=== PATIENT | female | born 1935 | race Caucasian/White ===

== ENCOUNTER 2016-09-14 13:16 | Emergency (ER) | payer MEDICARE, OTHER ==
[2016-09-14 13:25] VITALS: BP 146/82
--- NOTE | 2016-09-14 13:49 | EDM.PDOC ---
ED HPI RENAL/ - General Chief Complaint: Genitourinary Problem Stated Complaint: BLADDER INFECTION Time Seen by Provider: 09/14/16 13:43 Source of Information: Reports: Patient History Limitations: Reports: No limitations - History of Present Illness INITIAL COMMENTS - FREE TEXT/NARRATIVE: 81-year-old female it is ED with complaints of sudden onset of dysuria urgency and frequency since awakening this morning. She reports that she is prone to urinary tract infections but hasn't had one for about 3-4 months. 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 Next appointment is in October. She has not seen any blood in her urine. At present she is voiding about every 15-20 minutes with a constant urge and need to void. Associated mild diffuse low back discomfort and suprapubic pressure discomfort. No fever or chills. Symptom Onset Date: 09/14/16 Symptom Onset Time: 07:30 Timing/Duration: Reports: Hour(s):, Getting worse, Sudden onset Location: Reports: suprapubic Quality: Reports: burning Severity: severe Improves with: Reports: other (Nothing seems to make it better or worse.) Context: Denies: sick contact, recent surgery, recent trauma, lifting, activity/ exercise, other Associated Symptoms: Reports: burning, dysuria, frequency, urgency, voiding small amounts. Denies: incontinence, constipation - Related Data Allergies/ADRs: Allergies Allergy/AdvReac Type Severity Reaction Status Date / Time No Known Allergies Allergy Verified 03/28/14 21:52 Home Meds: Home Meds atorvaSTATin [Lipitor] 10 mg PO DAILY 03/28/14 [History] Nitrofurantoin Cherry/Macrocryst [Macrobid] 100 mg PO BID #16 cap 09/14/16 [Rx] Phenazopyridine HCl [Pyridium] 100 mg PO Q6H #4 tablet 09/14/16 [Rx] Past Medical History Cardiovascular History: Reports: High cholesterol Genitourinary History: Reports: UTI, recurrent Oncologic (Cancer) History: Reports: Bladder (A cystoscopy carried out every 3 months. Is in October.) - Past Surgical History GI Surgical History: Reports: Appendectomy Social & Family History - Tobacco Use Smoking Status *Q: Never Smoker - Caffeine Use Caffeine Use: Reports: Coffee, Tea - Alcohol Use Days Per Week of Alcohol Use: 7 Number of Drinks Per Day: 1 Total Drinks Per Week: 7 - Recreational Drug Use Recreational Drug Use: No - Living Situation & Occupation Occupation: retired ED ROS GENERAL - Review of Systems Review Of Systems: See Below Constitutional: Denies: fever, chills, malaise, weakness, fatigue, weight loss HEENT: Reports: No symptoms Respiratory: Reports: No Symptoms Cardiovascular: Reports: No symptoms Endocrine: Reports: no symptoms GI/Abdominal: Reports: Abdominal pain (Suprapubic pressure discomfort.) : Reports: dysuria, frequency, pain, urgency. Denies: hematuria, urinary retention Musculoskeletal: Reports: back pain Skin: Reports: no symptoms (Diffuse low back pain below her flanks.) Neurological: Reports: No Symptoms Psychiatric: Reports: No symptoms ED EXAM, RENAL/ - Physical Exam Exam: See Below Exam Limited By: No limitations General Appearance: alert, WD/WN, mild distress Throat/Mouth: Normal inspection, Normal lips, Normal teeth, Normal oropharynx Head: atraumatic, normocephalic Neck: normal inspection, supple, non-tender, full range of motion. No: lymphadenopathy (L), lymphadenopathy (R) Respiratory/Chest: no respiratory distress, lungs clear, normal breath sounds, no accessory muscle use, respiratory distress (Final tachypnea due to anxiety.) Cardiovascular: normal peripheral pulses, regular rate, rhythm, no edema, no gallop, no murmur, no rub GI/Abdominal: other (Mild suprapubic pressure discomfort.) Back Exam: No: CVA tenderness (L), CVA tenderness (R) Neurological: alert, oriented, CN II-XII intact, normal cognition, normal gait Psychiatric: normal affect, normal mood Skin Exam: Warm, Dry, Intact, Normal color, No rash Course - Vital Signs Last Recorded V/S: Last Vital Signs Temp 36.6 C 09/14/16 13:24 Pulse 86 09/14/16 13:24 Resp 20 09/14/16 13:24 BP 146/82 H 09/14/16 13:24 Pulse Ox 97 09/14/16 13:24 - Orders/Labs/Meds Orders: Active Orders 24 hr Category Date Time Status CULTURE URINE [RM] Stat Lab 09/14/16 15:08 Uncollected Labs: Laboratory Tests 09/14/16 Range/Units 13:45 Urine Color Yellow (Yellow) Urine Appearance Clear (Clear) Urine pH 6.0 (5.0-8.0) Ur Specific [place] 1.015 (1.005-1.030) Urine Protein Negative (Negative) Urine Glucose (UA) Negative (Negative) Urine Ketones Negative (Negative) Urine Occult Blood 1+ H (Negative) Urine Nitrite Positive H (Negative) Urine Bilirubin Negative (Negative) Urine Urobilinogen 0.2 (0.2-1.0) Ur Leukocyte Esterase 1+ H (Negative) Urine RBC 0-5 (0-5) /hpf Urine WBC 5-10 H (0-5) /hpf Ur Epithelial Cells 5-10 H (0-5) /hpf Urine Bacteria Many H (FEW) /hpf Urine Mucus Few (FEW) /hpf - Radiology Interpretation Free Text/Narrative:: 81-year-old female presents the ED with acute onset of urgency dysuria and frequency since waking up this morning. She reports that she's kind of prone to urinary tract infections but hasn't had one for several months. She has a history of carcinoma of the bladder and is followed every 3 months by cystoscopy. Plan urinalysis to - Re-Assessments/Exams Free Text/Narrative Re-Assessment/Exam: 09/14/16 14:12 urinalysis shows positive nitrates and bitemporal cells 5-10 red cells per high-power field trace leukocyte esterase. Culture ordered. Patient placed on Macrobid 100 mg twice daily for 8 days. Also Pyridium 100 mg every 6 hours x4 tablets. Plenty of fluids. Expect marked improvement in 24 hours time. Departure - Departure Time of Disposition: 13:47 Disposition: Home, Self-Care 01 Condition: fair Clinical Impression: UTI, Urinary tract infectious disease Prescriptions: Nitrofurantoin Cherry/Macrocryst [Macrobid] 100 mg PO BID #16 cap Phenazopyridine HCl [Pyridium] 100 mg PO Q6H #4 tablet Instructions: Urinary Tract Infection, Adult, [id number] Referrals: Jas Fischer MD [Primary Care Provider] - Forms: ED Department Discharge Additional Instructions: Evaluation in the emergency room today in regards to development of acute lower urinary tract infection. This includes dysuria with burning with voiding as well as a sense of urgency to go and increased frequency of urination. Associated low back pain. Treatment is antibiotic Macrobid 100 mg twice daily for 8 days to clear up infection. Pyridium 100 mg every 6 hours as needed to relieve symptoms of burning and urgency and frequency. Expect marked improvement over the next 24 hours. Of course drink plenty of fluids try to flush as well. - My Orders Last 24 Hours: My Active Orders 09/14/16 15:08 CULTURE URINE [RM] Stat - Assessment/Plan Last 24 Hours: My Active Orders 09/14/16 15:08 CULTURE URINE [] Stat
== END 2016-09-14 14:10 | disposition home or self-care (01) ==
LOC: JD.ED 13:16
DX: N39.0 Urinary tract infection, site not specified (principal); E78.00 Pure hypercholesterolemia, unspecified; Z90.49 Acquired absence of other specified parts of digestive tract
CPT/HCPCS: 81001; 99283

== ENCOUNTER 2018-03-14 07:48 | Emergency (ER) | payer MEDICARE, OTHER ==
[2018-03-14] MEDS ORDERED: Sodium Chloride 0.9% 1,000 ML IV STA (08:10)
[2018-03-14] MEDS ORDERED: Sodium Chloride 0.9% 10 ML Syringe FLUSH PRN (08:10)
[2018-03-14] MEDS ORDERED: Ondansetron 4 MG/2 ML SDV IVPUSH ONE (08:10)
[2018-03-14] MEDS ORDERED: Acetaminophen 325 MG Tab PO ONE (08:12)
--- NOTE | 2018-03-14 08:29 | EDM.PDOC ---
ED HPI GENERAL MEDICAL PROBLEM - General Chief Complaint: Fever Stated Complaint: CHILLS/NAUSEA Time Seen by Provider: 03/14/18 08:01 Source of Information: Reports: Patient, Family History Limitations: Reports: No Limitations - History of Present Illness INITIAL COMMENTS - FREE TEXT/NARRATIVE: The patient presents with a fever, nausea and some dizziness. This all started this morning when she woke up. She went to bed feeling fine. She denies a cough but she did cough when I examined her. She has nausea but no vomiting. She has no chest pain or shortness of breath. She denies abdominal pain but her abdomen does not feel right. She did take some azo the past few days because she felt like a bladder infection was coming on. Those symptoms have gotten better. She has no history of heart disease, hypertension, hypercholesterolemia, asthma or COPD. She feels dizzy when she is up walking. Onset: Sudden Duration: Hour(s): Quality: Reports: Ache Severity: Moderate Improves with: Reports: None Worsens with: Reports: None Associated Symptoms: Reports: Cough, Fever/Chills, Nausea/Vomiting. Denies: Chest Pain, Headaches, Shortness of Breath Abdominal Pain Score (Numeric/FACES): 5 - Related Data Allergies Allergy/AdvReac Type Severity Reaction Status Date / Time No Known Allergies Allergy Verified 03/14/18 08:01 Home Meds: Home Meds atorvaSTATin [Lipitor] 10 mg PO DAILY 03/28/14 [History] Nitrofurantoin Monohyd/M-Cryst [Macrobid 100 mg Capsule] 100 mg PO BID #10 capsule 03/14/18 [Rx] Past Medical History HEENT History: Reports: Impaired Vision Other HEENT History: Wears eye glasses. 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 Musculoskeletal History: Reports: Back Pain, Chronic Oncologic (Cancer) History: Reports: Bladder - Past Surgical History GI Surgical History: Reports: Appendectomy Female Surgical History: Reports: Other (See Below) Other Female Surgeries/Procedures: Bladder Surgery Endocrine Surgical History: Reports: None Neurological Surgical History: Reports: None Dermatological Surgical History: Reports: None Social & Family History - Caffeine Use Caffeine Use: Reports: Soda - Living Situation & Occupation Occupation: Retired ED ROS GENERAL - Review of Systems Review Of Systems: See Below Constitutional: Reports: Fever, Chills HEENT: Reports: No Symptoms Respiratory: Reports: No Symptoms Cardiovascular: Reports: No Symptoms Endocrine: Reports: No Symptoms GI/Abdominal: Reports: Abdominal Pain (her abdomen does not feel right), Nausea. Denies: Vomiting : Reports: No Symptoms Musculoskeletal: Reports: No Symptoms ED EXAM, SEPSIS - Physical Exam Exam: See Below Exam Limited By: No Limitations General Appearance: Alert, No Apparent Distress Ears: Normal External Exam, Normal Canal, Normal TMs Nose: Normal Inspection Throat/Mouth: Normal Inspection Head: Atraumatic, Normocephalic Neck: Normal Inspection, Supple, Non-Tender Respiratory/Chest: No Respiratory Distress, Lungs Clear, Normal Breath Sounds Cardiovascular: Regular Rate, Rhythm, No Edema, No Murmur GI/Abdominal Exam: Soft, Non-Tender, No Organomegaly, No Mass Back: Normal Inspection Extremities: Normal Inspection Neurological: Alert, Oriented, No Motor/Sensory Deficits, Other (No nystagmus) Course - Vital Signs Last Recorded V/S: Last Vital Signs Temp 98.2 F 03/14/18 09:38 Pulse 102 H 03/14/18 09:38 Resp 16 03/14/18 09:38 BP 110/55 L 03/14/18 09:38 Pulse Ox 97 03/14/18 09:38 - Orders/Labs/Meds Orders: Active Orders 24 hr Category Date Time Status Oxygen Therapy Adult [Oxygen Therapy, ED] [RC] Care 03/14/18 08:33 Active ASDIRECTED Peripheral IV Care [RC] . DIRECTED Care 03/14/18 08:10 Active Chest 1V Frontal [CR] Stat Exams 03/14/18 08:10 Taken CULTURE BLOOD [BC] Stat Lab 03/14/18 08:25 Received CULTURE BLOOD [BC] Stat Lab 03/14/18 08:32 Received CULTURE URINE [RM] Stat Lab 03/14/18 08:50 Received Sodium Chloride 0.9% [Saline Flush] Med 03/14/18 08:10 Active 10 ml FLUSH ASDIRECTED PRN Blood Culture x2 Reflex Set [OM.PC] Stat Oth 03/14/18 08:10 Ordered ED Antiemetic Medication Reflex [OM.PC] Stat Oth 03/14/18 08:10 Ordered Peripheral IV Insertion Adult [OM.PC] Stat Oth 03/14/18 08:10 Ordered Medication Orders Sodium Chloride (Saline Flush) 10 ml FLUSH ASDIRECTED PRN PRN Reason: Keep Vein Open Last Admin: 03/14/18 08:20 Dose: 10 ml Labs: Laboratory Tests 03/14/18 03/14/18 03/14/18 Range/Units 08:25 08:25 08:25 WBC 10.90 H (3.98-10.04) K/mm3 RBC 4.12 (3.98-5.22) M/mm3 Hgb 12.2 (11.2-15.7) gm/L Hct 38.0 (34.1-44.9) % MCV 92.2 (79.4-94.8) fl MCH 29.6 (25.6-32.2) pg MCHC 32.1 L (32.2-35.5) g/dl RDW Std Deviation 47.7 H (36.4-46.3) fL Plt Count 369 (182-369) K/mm3 MPV 8.5 L (9.4-12.3) fl Neut % (Auto) 88.9 H (34.0-71.1) % Lymph % (Auto) 5.7 L (19.3-51.7) % [place] % (Auto) 4.6 L (4.7-12.5) % Eos % (Auto) 0.3 L (0.7-5.8) Baso % (Auto) 0.2 (0.1-1.2) % Neut # (Auto) 9.70 H (1.56-6.13) K/mm3 Lymph # (Auto) 0.62 L (1.18-3.74) K/mm3 [place] # (Auto) 0.50 H (0.24-0.36) K/mm3 Eos # (Auto) 0.03 L (0.04-0.36) K/mm3 Baso # (Auto) 0.02 (0.01-0.08) K/mm3 Manual Slide Review Abnormal smear Sodium 138 (136-145) mEq/L Potassium 3.6 (3.5-5.1) mEq/L Chloride 104 (98-107) mEq/L Carbon Dioxide 26 (21-32) mEq/L Anion Gap 11.6 (5-15) BUN 12 (7-18) mg/dL Creatinine 1.0 (0.55-1.02) mg/dL Est Cr Clr Drug Dosing 39.03 mL/min Estimated GFR (MDRD) 53 (>60) mL/min BUN/Creatinine Ratio 12.0 L (14-18) Glucose 133 H (83-115) mg/dL Lactic Acid 1.6 (0.4-2.0) mmol/L Calcium 9.0 (8.5-10.1) mg/dL Total Bilirubin 1.5 H (0.2-1.0) mg/dL AST 15 (15-37) U/L ALT 16 (14-59) U/L Alkaline Phosphatase 90 (46-116) U/L Total Protein 6.8 (6.4-8.2) g/dl Albumin 3.0 L (3.4-5.0) g/dl Globulin 3.8 gm/dL Albumin/Globulin Ratio 0.8 L (1-2) Urine Color (Yellow) Urine Appearance (Clear) Urine pH (5.0-8.0) Ur Specific [place] (1.005-1.030) Urine Protein (Negative) Urine Glucose (UA) (Negative) Urine Ketones (Negative) Urine Occult Blood (Negative) Urine Nitrite (Negative) Urine Bilirubin (Negative) Urine Urobilinogen (0.2-1.0) Ur Leukocyte Esterase (Negative) Urine RBC (0-5) /hpf Urine WBC (0-5) /hpf Ur Epithelial Cells (0-5) /hpf Urine Bacteria (FEW) /hpf Urine Mucus (FEW) /hpf 03/14/18 Range/Units 08:50 WBC (3.98-10.04) K/mm3 RBC (3.98-5.22) M/mm3 Hgb (11.2-15.7) gm/L Hct (34.1-44.9) % MCV (79.4-94.8) fl MCH (25.6-32.2) pg MCHC (32.2-35.5) g/dl RDW Std Deviation (36.4-46.3) fL Plt Count (182-369) K/mm3 MPV (9.4-12.3) fl Neut % (Auto) (34.0-71.1) % Lymph % (Auto) (19.3-51.7) % [place] % (Auto) (4.7-12.5) % Eos % (Auto) (0.7-5.8) Baso % (Auto) (0.1-1.2) % Neut # (Auto) (1.56-6.13) K/mm3 Lymph # (Auto) (1.18-3.74) K/mm3 [place] # (Auto) (0.24-0.36) K/mm3 Eos # (Auto) (0.04-0.36) K/mm3 Baso # (Auto) (0.01-0.08) K/mm3 Manual Slide Review Sodium (136-145) mEq/L Potassium (3.5-5.1) mEq/L Chloride (98-107) mEq/L Carbon Dioxide (21-32) mEq/L Anion Gap (5-15) BUN (7-18) mg/dL Creatinine (0.55-1.02) mg/dL Est Cr Clr Drug Dosing mL/min Estimated GFR (MDRD) (>60) mL/min BUN/Creatinine Ratio (14-18) Glucose (83-115) mg/dL Lactic Acid (0.4-2.0) mmol/L Calcium (8.5-10.1) mg/dL Total Bilirubin (0.2-1.0) mg/dL AST (15-37) U/L ALT (14-59) U/L Alkaline Phosphatase (46-116) U/L Total Protein (6.4-8.2) g/dl Albumin (3.4-5.0) g/dl Globulin gm/dL Albumin/Globulin Ratio (1-2) Urine Color Yellow (Yellow) Urine Appearance Turbid H (Clear) Urine pH 6.5 (5.0-8.0) Ur Specific [place] 1.025 (1.005-1.030) Urine Protein 3+ H (Negative) Urine Glucose (UA) Negative (Negative) Urine Ketones Trace H (Negative) Urine Occult Blood 2+ H (Negative) Urine Nitrite Positive H (Negative) Urine Bilirubin Negative (Negative) Urine Urobilinogen 0.2 (0.2-1.0) Ur Leukocyte Esterase 3+ H (Negative) Urine RBC 30-40 H (0-5) /hpf Urine WBC Too numerous to cnt H (0-5) /hpf Ur Epithelial Cells 5-10 H (0-5) /hpf Urine Bacteria Many H (FEW) /hpf Urine Mucus Few (FEW) /hpf Meds: Medications Generic Name Dose Route Start Last Admin Trade Name Akosua PRN Reason Stop Dose Admin Sodium Chloride 10 ml 03/14/18 08:10 03/14/18 08:20 Saline Flush FLUSH 10 ml ASDIRECTED PRN Administration Keep Vein Open Discontinued Medications Generic Name Dose Route Start Last Admin Trade Name Akosua PRN Reason Stop Dose Admin Acetaminophen 975 mg 03/14/18 08:12 03/14/18 08:19 Tylenol PO 03/14/18 08:13 975 mg NOW ONE Administration Sodium Chloride 1,000 mls @ 1,000 mls/hr 03/14/18 08:10 03/14/18 08:18 Normal Saline IV 03/14/18 09:09 1,000 mls/hr .BOLUS STA Administration Ceftriaxone Sodium 2 gm/ 100 mls @ 100 mls/hr 03/14/18 09:26 03/14/18 09:36 Sodium Chloride IV 03/14/18 10:25 100 mls/hr ONETIME ONE Administration Ondansetron HCl 4 mg 03/14/18 08:10 03/14/18 08:19 Zofran IVPUSH 03/14/18 08:11 4 mg ONETIME ONE Administration - Re-Assessments/Exams Free Text/Narrative Re-Assessment/Exam: 03/14/18 08:32 I ordered an IV NS 1L bolus, UA, labs, CXR, blood cultures, tylenol and zofran. My nurse had to put the patient on 2L by MT because her oxygen saturations went down to 85% while she was sitting here. 03/14/18 09:35 Her CXR looks good. Her WBC was slightly elevated at 10.9. Her glucose is elevated at 133. Her lactic acid was normal at 1.6. Her UA was positive for UTI. I have ordered a urine culture and rocephin 2 grams IV. 03/14/18 10:45 She feels better. I feel that I can discharge her home on some macrobid. I will send a prescription to her pharmacy. Departure - Departure Time of Disposition: 10:50 Disposition: Home, Self-Care 01 Condition: Good Clinical Impression: UTI, Urinary tract infectious disease, Nausea, Dizziness - Discharge Information *PRESCRIPTION DRUG MONITORING PROGRAM REVIEWED*: No *COPY OF PRESCRIPTION DRUG MONITORING REPORT IN PATIENT TASHA: No Prescriptions: Nitrofurantoin Monohyd/M-Cryst [Macrobid 100 mg Capsule] 100 mg PO BID #10 capsule Referrals: Jun Martell MD [Primary Care Provider] - Forms: ED Department Discharge Additional Instructions: Drink plenty of water. Take the macrobid 2 times per day for 5 days. Please return if you are worse. - My Orders Last 24 Hours: My Active Orders 03/14/18 08:10 Peripheral IV Care [RC] . DIRECTED Chest 1V Frontal [CR] Stat Sodium Chloride 0.9% [Saline Flush] 10 ml FLUSH ASDIRECTED PRN Blood Culture x2 Reflex Set [OM.PC] Stat ED Antiemetic Medication Reflex [OM.PC] Stat Peripheral IV Insertion Adult [OM.PC] Stat 03/14/18 08:25 CULTURE BLOOD [BC] Stat 03/14/18 08:32 CULTURE BLOOD [BC] Stat 03/14/18 08:33 Oxygen Therapy Adult [Oxygen Therapy, ED] [] ASDIRECTED 03/14/18 08:50 CULTURE URINE [RM] Stat - Assessment/Plan Last 24 Hours: My Active Orders 03/14/18 08:10 Peripheral IV Care [RC] . DIRECTED Chest 1V Frontal [CR] Stat Sodium Chloride 0.9% [Saline Flush] 10 ml FLUSH ASDIRECTED PRN Blood Culture x2 Reflex Set [OM.PC] Stat ED Antiemetic Medication Reflex [OM.PC] Stat Peripheral IV Insertion Adult [OM.PC] Stat 03/14/18 08:25 CULTURE BLOOD [BC] Stat 03/14/18 08:32 CULTURE BLOOD [BC] Stat 03/14/18 08:33 Oxygen Therapy Adult [Oxygen Therapy, ED] [] ASDIRECTED 03/14/18 08:50 CULTURE URINE [RM] Stat
[2018-03-14] MEDS ORDERED: cefTRIAXone 2 GM in Sodium Chloride 0.9% 100 ML IV ONE (09:26)
[2018-03-14 11:02] VITALS: BP 95/52
--- NOTE | 2018-03-16 07:13 | CR ---
Chest: Portable view of the chest was obtained. Comparison: Prior chest x-ray of 12/10/16. Heart size is normal. Upper mediastinum is within normal limits. Mild scoliosis is seen within the spine. Lungs are clear with no acute parenchymal change. Impression: 1. Mild scoliosis. Nothing acute is appreciated on portable chest x-ray. Diagnostic code #2
== END 2018-03-14 11:00 | disposition home or self-care (01) ==
LOC: JD.ED 07:48
DX: N39.0 Urinary tract infection, site not specified (principal); R42 Dizziness and giddiness; B96.20 Unspecified Escherichia coli [E. coli] as the cause of diseases classified elsewhere; R11.2 Nausea with vomiting, unspecified
CPT/HCPCS: 36415; 71045; 80053; 81001; 83605; 85025; 87040; 87086; 87088; 87186; 96361; 96365; 96375; 99285; A9270; J0696; J2405; J7030; J7040; J7050; 99284

== ENCOUNTER 2018-08-31 19:21 | Emergency (ER) | payer MEDICARE, OTHER ==
[2018-08-31 19:38] VITALS: BP 113/74
--- NOTE | 2018-08-31 19:44 | EDM.PDOC ---
ED HPI GENERAL MEDICAL PROBLEM - General Chief Complaint: Genitourinary Problem Stated Complaint: POSS UTI Time Seen by Provider: 08/31/18 19:44 Source of Information: Reports: Patient History Limitations: Reports: No Limitations - History of Present Illness INITIAL COMMENTS - FREE TEXT/NARRATIVE: Patient is a 83-year-old female with a history of recurrent UTIs. She was recently seen by her PCP approximately 2 weeks ago for a urinary tract infection. Placed on antibiotic of unknown name with resolution of symptoms. She has has a history of bladder surgery many years ago. She states approximately one hour ago developed pain with urination with increased frequency and urgency. She currently denies any fever, nausea vomiting, abdominal pain, hematuria, CVA tenderness, or any additional complaints. Symptoms are similar to previous UTIs. She states over the past few days she has not been drinking as much water as she normally should with family visiting. Patient denies any history of kidney stones. Bladder Pain Score (Numeric/FACES): 6 - Related Data Allergies Allergy/AdvReac Type Severity Reaction Status Date / Time No Known Allergies Allergy Verified 08/31/18 19:38 Home Meds: Home Meds atorvaSTATin [Lipitor] 10 mg PO DAILY 03/28/14 [History] Past Medical History HEENT History: Reports: Impaired Vision Other HEENT History: Wears eye glasses. Cardiovascular History: Reports: None Respiratory History: Reports: None Gastrointestinal History: Reports: None Genitourinary History: Reports: UTI, Recurrent Other Genitourinary History: had a UTI just a couple of weeks ago was seen by Dr. Martell LOGISTICS ACCOUNT MANAGER History: Reports: None Other LOGISTICS ACCOUNT MANAGER History: Breast Cyst Musculoskeletal History: Reports: Back Pain, Chronic, Other (See Below) Other Musculoskeletal History: carpal tunnel syndrome Neurological History: Reports: None Psychiatric History: Reports: None Endocrine/Metabolic History: Reports: None Hematologic History: Reports: None Immunologic History: Reports: None Oncologic (Cancer) History: Reports: None Dermatologic History: Reports: None - Past Surgical History Head Surgeries/Procedures: Reports: None HEENT Surgical History: Reports: None Cardiovascular Surgical History: Reports: None Respiratory Surgical History: Reports: None GI Surgical History: Reports: Appendectomy, Colonoscopy Female Surgical History: Reports: Other (See Below) Other Female Surgeries/Procedures: bladder surgery Endocrine Surgical History: Reports: None Neurological Surgical History: Reports: None Oncologic Surgical History: Reports: None Dermatological Surgical History: Reports: None Social & Family History - Family History Family Medical History: Noncontributory - Tobacco Use Smoking Status *Q: Never Smoker - Caffeine Use Caffeine Use: Reports: Coffee, Soda - Living Situation & Occupation Occupation: Retired ED ROS GENERAL - Review of Systems Review Of Systems: ROS reveals no pertinent complaints other than HPI. ED EXAM, RENAL/ - Physical Exam Exam: See Below Exam Limited By: No Limitations General Appearance: Alert, WD/WN, No Apparent Distress Ears: Hearing Grossly Normal Nose: Normal Inspection Throat/Mouth: Normal Voice, No Airway Compromise Head: Atraumatic, Normocephalic Neck: Normal Inspection, Supple Respiratory/Chest: No Respiratory Distress, Lungs Clear, Normal Breath Sounds, No Accessory Muscle Use Cardiovascular: Normal Peripheral Pulses, Regular Rate, Rhythm, No Murmur GI/Abdominal: Normal Bowel Sounds, Soft, Non-Tender, No Organomegaly, No Distention Neurological: Alert, Oriented, CN II-XII Intact, Normal Cognition, No Motor/ Sensory Deficits Psychiatric: Normal Affect, Normal Mood Skin Exam: Warm, Dry, Intact, Normal Color Course - Vital Signs Last Recorded V/S: Last Vital Signs Temp 97.6 F 08/31/18 19:34 Pulse 95 08/31/18 19:34 Resp 16 08/31/18 19:34 BP 113/74 08/31/18 19:34 Pulse Ox 98 08/31/18 19:34 - Orders/Labs/Meds Labs: Laboratory Tests 08/31/18 Range/Units 20:15 Urine Color Light yellow (Yellow) Urine Appearance Clear (Clear) Urine pH 6.5 (5.0-8.0) Ur Specific Lamar 1.015 (1.005-1.030) Urine Protein Negative (Negative) Urine Glucose (UA) Negative (Negative) Urine Ketones Negative (Negative) Urine Occult Blood Trace-lysed H (Negative) Urine Nitrite Negative (Negative) Urine Bilirubin Negative (Negative) Urine Urobilinogen 0.2 (0.2-1.0) Ur Leukocyte Esterase Trace H (Negative) Urine RBC 0-5 (0-5) /hpf Urine WBC 0-5 (0-5) /hpf Ur Epithelial Cells 0-5 (0-5) /hpf Urine Bacteria Rare (FEW) /hpf Urine Mucus Rare H (FEW) /hpf - Re-Assessments/Exams Free Text/Narrative Re-Assessment/Exam: UA will be obtained. No additional labs will be obtained at this time. 08/31/18 21:16 UA came back with trace occult blood, leukocyte esterase trace, mucus rare, nitrates negative, urine wbc's 0-5, urine rbc's 0-5. 2119 Reassessment, patient still complains of some pressure sensation to her vagina region. I have offered to have the nursing staff examine the vaginal area for a yeast infection and or irritation. She has agreed to do so. In addition she denies any abdominal pain on reexamination. She does not have a urinary tract infection. No cultures will be obtained at this time. She denies being constipated. Nursing staff has examined the patient's external genitalia with no concerning findings noted. No excoriations, drainage, irritation, and/or findings for yeast infection. Patient is ready to be discharged home. Return precautions discussed with patient and family. Patient has no questions or concerns and agrees with plan. Departure - Departure Time of Disposition: 21:37 Disposition: Home, Self-Care 01 Condition: Good Clinical Impression: Dysuria - Discharge Information Instructions: Dysuria Referrals: Jun Martell MD [Primary Care Provider] - Forms: ED Department Discharge Additional Instructions: UA indicated no bladder infection. This may be the early onset of a UTI. I will not place you on any antibiotics at this time. Please push the fluids. Suspect you may have a overactive. I will refer further examination and treatment for PCP. Call tomorrow for an appt. Return to the E.D. for any new or worsening symptoms.
== END 2018-08-31 21:43 | disposition home or self-care (01) ==
LOC: JD.ED 19:21
DX: R30.0 Dysuria (principal); Z79.899 Other long term (current) drug therapy
CPT/HCPCS: 81001; 99282; 99283